=== PATIENT | female | born 1995 | race Caucasian/White ===

== ENCOUNTER 2017-12-21 09:24 | Outpatient (CLI) | payer OTHER | END 2017-12-21 10:13 | disposition home or self-care (01) | LOC: LC 09:24 | PROVIDERS: ATTEND Student in an Organized Health Care Education/Training Program | PROC: 4A1HXCZ Monitoring of Products of Conception, Cardiac Rate, External Approach (ICD-10-PCS; principal; 2017-12-21) | DX: Z34.93 Encounter for supervision of normal pregnancy, unspecified, third trimester (principal) | CPT/HCPCS: 59025 ==

== ENCOUNTER 2017-12-23 18:57 | Inpatient (IN) | payer OTHER ==
[2017-12-23] MEDS ORDERED: RINGERS SOLUTION,LACTATED 300 ML IV ONE (19:56)
[2017-12-23] MEDS ORDERED: DINOPROSTONE 10 MG VAGINAL INSERT.SR PV PRN (19:56)
[2017-12-23 20:27] LABS: APPEARANCE,URINE SLIGHTLY-CLOUDY; BILIRUBIN,URINE NEGATIVE (NEGATIVE); COLOR,URINE STRAW; GLUCOSE, URINE NEGATIVE (NEGATIVE); KETONES,URINE NEGATIVE (NEGATIVE); LEUKOCYTE ESTERASE,URINE LARGE (NEGATIVE); NITRITE,URINE NEGATIVE (NEGATIVE); PROTEIN,URINE NEGATIVE (NEGATIVE); URINE SPECIFIC GRAVITY 1.004; UROBILINOGEN,URINE NEGATIVE mg/dL (<2.0)
[2017-12-23 20:35] LABS: ABSOLUTE LYMPHOCYTES (AUTO) 1.1 10^3/uL (0.5-4.7); ABSOLUTE MONOCYTES (AUTO) 0.3 10^3/uL (0.1-1.4); ABSOLUTE NEUT (AUTO) 4.8 10^3/uL (1.7-8.2); BASOPHILS % (AUTO) 0.4 % (0-2); EOSINOPHILS % (AUTO) 0.3 % (0-6); HEMATOCRIT 39.5 % (36.0-47.0); HEMOGLOBIN 13.1 g/dL (12.0-15.5); LYMPHOCYTES % (AUTO) 17.4 % (13-45); MEAN CORPUSCULAR HEMOGLOBIN 28.3 pg (27.0-33.4); MEAN CORPUSCULAR HGB CONC 33.2 g/dL (32.0-36.0); MEAN CORPUSCULAR VOLUME 85 fl (80-97); MONOCYTES % (AUTO) 5.3 % (3-13); PLATELET COUNT 225 10^3/uL (150-450); RED BLOOD COUNT 4.64 10^6/uL (3.72-5.28); RED CELL DISTRIBUTION WIDTH 13.9 % (11.5-14.0); SEGMENTED NEUTROPHILS % (AUTO) 76.6 % (42-78); TOTAL CELLS COUNTED % (AUTO) 100 %; WHITE BLOOD COUNT 6.2 10^3/uL (4.0-10.5)
[2017-12-23] MEDS ORDERED: DINOPROSTONE 10 MG VAGINAL INSERT.SR ONE (20:37)
[2017-12-23 20:45] LABS: URINE AMPHETAMINES SCREEN NEGATIVE; URINE BARBITURATES SCREEN NEGATIVE; URINE BENZODIAZEPINES SCREEN NEGATIVE; URINE COCAINE SCREEN NEGATIVE; URINE MARIJUANA (THC) SCREEN NEGATIVE; URINE METHADONE SCREEN NEGATIVE; URINE PHENCYCLIDINE SCREEN NEGATIVE
[2017-12-24] MEDS ORDERED: NALBUPHINE HCL INJ 10 MG/1 ML AMPULE INJ ONE ×2 (00:56→06:21)
[2017-12-24] MEDS ORDERED: NALBUPHINE HCL INJ 10 MG/1 ML AMPULE ONE ×2 (00:58→06:24)
[2017-12-24] MEDS: RINGERS SOLUTION,LACTATED 1,000 ML IV PRN ×4 (02:11→17:10)
--- NOTE | 2017-12-24 08:07 | Admission Physical ---
Datetime Report Generated by CPN: 12/24/2017 08:07 CURRENT ADMISSION Hx Assessment: The History has been Reviewed and is Current Chief Complaint: Scheduled Induction of Labor Indication for Induction: Post Dates Indication for Induction: Term, Intrauterine ; No Active Labor; Intact Membranes; Induction of Labor Admit Plan: Admit to Unit; Initiate Labor Induction Protocol ALLERGIES Medication Allergies: No Medication Allergies: No Known Allergies (12/23/2017) Latex: No Latex Allergies Food Allergies: none Environmental Allergies: multiple environmental allergies, no severe reactions OBSTETRICAL HISTORY EDC: 12/16/2017 00:00 : 1 Para: 0 Term: 0 : 0 SAB: 0 IAB: 0 Ectopic: 0 Livin Cesareans: 0 VBACs: 0 Multiple Births: 0 Gestational Diabetes: No Rh Sensitization: No Incompetent Cervix: No TEDDY: No Infertility: No ART Treatment: No Uterine Anomaly: No IUGR: No Hx Previous C/S: No Macrosomia: No Hx Loss/Stillborn: No PIH: No Hx : No Placenta Previa/Abruption: No Depression/PP Depression: No PTL/PROM: No Post Hemorrhage: No Current Procedures: Ultrasound; NST Obstetrical History Comments: G1-present EDC 12/16/17 SEE RECORDS Alcohol: No Marijuana : No Cocaine: No Other Illicit Drugs: No Cigarettes: Never Smoker. [id number] MEDICAL HISTORY Diabetes: No Blood Transfusion: No Pulmonary Disease (Asthma, TB): No Breast Disease: No Hypertension: No Warp Hand Surgery: No Heart Disease: No Hosp/Surgery: No Autoimmune Disorder: No Anesthetic Complications: No Kidney Disease: No Abnormal Pap Smear: No Neuro/Epilepsy: No Psychiatric Disorders: No Other Medical Diseases: No Hepatitis/Liver Disease: No Significant Family History: No Varicosities/Phlebitis: No Trauma/Violence : No Thyroid Dysfunction: No INFECTIOUS HISTORY Gonorrhea: No Genital Herpes: No Chlamydia: No Tuberculosis: No Syphilis: No Hepatitis: No HIV/AIDS Exposure: No Rash or Viral Illness: No HPV: No PHYSICAL EXAM General: Normal HEENT: Normal Neurologic: Normal Thyroid: Deferred Heart: Normal Lungs: Normal Breast: Normal Back: Normal Abdomen: Normal Genitourinary Exam: Normal Extremities: Normal DTRs: Normal Pelvic Type: Adequate Vital Signs: Reviewed VAGINAL EXAM Dilatation: 2 Effacement: 50 Station: -2 Contraction Comments: 2 MEMBRANES Membranes: Intact FETUS A EGA: 41.1 Monitoring: External US FHR- Baseline: 150 Variability: Moderate 6-25bpm Accelerations: 15X15 Decelerations: None FHR Category: Category I Estimated Weight (gm): 4000 Presentation: Vertex Admit Comment: Post dates IOL 41+1, efw 8 lbs 14oz on12/16/17. uncomplicated, was transfer from [place] GBS negative Cervidil overnight, pitocin in am See hx for complete medical, surgical hx PLANS FOR LABOR AND DELIVERY Labor and Delivery: None Pain Management: Medications; Epidural Feeding Preference: Breast Benefit of Breast Feed Discussed: Yes Circumcision: N/A INFORMED CONSENT Assignment: Jesica Ramirez MD Signature: with User ID: [email or web address] : with User ID: [email or web address]
[2017-12-24] MEDS ORDERED: EPHEDRINE SULFATE INJ 50 MG/1 ML AMPULE ONE (10:14)
[2017-12-24] MEDS ORDERED: BUPIVACAINE HCL 0.25 % INJ/PF (2.5 MG/1 ML) 30 ML VIAL ONE (10:15)
[2017-12-24] MEDS ORDERED: FENTANYL/BUPIVACAINE/NS/PF 200 MCG/100 ML RTUINJ EPI ONE (10:15)
--- NOTE | 2017-12-24 12:01 | L&D Progress Notes ---
PROGRESS NOTES Datetime Report Generated by CPN: 12/24/2017 12:00 PROGRESS NOTE Impression: Normal Progression of Labor; Reassuring Heart Rate Procedures: Artificial ROM Plan: Continue Present Management Informed Consent Obtained: Vaginal Delivery Vital Signs : Reviewed Comment: Comfortable with epidural AROM, clear Continue present mgmt Start pit prn VAGINAL EXAM Dilatation: 5 Dilatation: 2 Effacement: 100 Effacement: 50 Station: 0 Station: -2 Contractions: 2-3 Contractions: 2 MEMBRANES Membranes: Ruptured Membranes: Intact Amniotic Fluid Color: Meconium, Heavy FETUS A FHR - Baseline: 145 Monitoring: External US Variability: Moderate 6-25bpm Accelerations: 15X15 Decelerations: None FHR Category: Category I Estimated Weight (gm): 4000 Presentation: Vertex SIGNATURE SIGNATURE: [id number] SIGNATURE: [id number] Assignment: Jesica Ramirez MD Signature: with User ID: [email or web address] : with User ID: [email or web address]
[2017-12-24] MEDS ORDERED: MISOPROSTOL 0.2 MG TABLET ONE (12:40)
[2017-12-24] MEDS ORDERED: LIDOCAINE 1% INJ-PF (10 MG/ML) 30 ML SDV ONE (12:40)
[2017-12-24] MEDS ORDERED: OXYTOCIN/NORMAL SALINE 20 UNIT/1,000 ML RTUINJ ONE (12:41)
[2017-12-24] MEDS: OXYTOCIN/NORMAL SALINE 20 UNIT/1,000 ML RTUINJ IV PRN ×2 (13:15→17:10)
[2017-12-24] MEDS ORDERED: ACETAMINOPHEN WITH CODEINE #3 TABLET PO PRN ×2 (16:19)
[2017-12-24] MEDS ORDERED: BENZOCAINE/MENTHOL AEROSOL SPRAY 56 ML TOP PRN (16:19)
[2017-12-24] MEDS ORDERED: DIPH/PERTUSS(ACELL)/TETANUS VAC/PF 0.5 ML SYR (>=10YO) IM PRN (16:19)
[2017-12-24] MEDS ORDERED: ZOLPIDEM TARTRATE 5 MG TABLET PO PRN (16:19)
[2017-12-24] MEDS ORDERED: DIBUCAINE 1% OINTMENT 28 GM TP PRN (16:19)
[2017-12-24] MEDS ORDERED: OXYTOCIN/NORMAL SALINE 20 UNIT/1,000 ML RTUINJ IV PRN (16:19)
[2017-12-24] MEDS ORDERED: MEASLES,MUMPS&RUBELLA VACC/PF 0.5 ML VIAL SUBCUT PRN (16:19)
--- NOTE | 2017-12-24 16:23 | Warning Signs in Babies ---
VOD Warning Signs Datetime Report Generated by [facility]: 12/24/2017 16:23 VOD#[id number] -Warning Signs in Babies: Viewed with Parent(s)/Family (12/21/2017 09:44:CHADWICK Marcos)
--- NOTE | 2017-12-24 16:49 | Warning Signs in Babies ---
VOD Warning Signs Datetime Report Generated by [facility]: 12/24/2017 16:49 VOD#[id number] -Warning Signs in Babies: Viewed with Parent(s)/Family (12/24/2017 16:00:CHADWICK Marcos)
[2017-12-24] MEDS ORDERED: IBUPROFEN 800 MG TABLET ONE (17:34)
[2017-12-24] MEDS ORDERED: DOCUSATE SODIUM 100 MG CAPSULE ONE (17:38)
[2017-12-24] MEDS ORDERED: FERROUS SULFATE 325 MG TABLET PO ONE (17:39)
[2017-12-24] MEDS: FERROUS SULFATE 325 MG TABLET PO SCH (17:40)
[2017-12-24] MEDS: DOCUSATE SODIUM 100 MG CAPSULE PO SCH (17:41)
--- NOTE | 2017-12-24 17:45 | Delivery Summary ---
Del Sum A-C Datetime Report Generated by CPN: 12/24/2017 17:45 DELIVERY PERSONNEL DELIVERY PERSONNEL: [id number] Delivery Doctor:: Jaqueline Davila CNM Nurse Assignment Manager Certified:: Jaqueline Davila CNM Labor and Delivery Nurse:: CHADWICK Marcos Nursery Nurse:: JAVED [place] Tech/EDUCATIONAL THERAPIST: Nury Elder ST MATERNAL INFORMATION Delivery Anesthesia: Epidural Medications After Delivery: Pitocin Bolus-Please Comment Meds After Delivery Comment: Pitocin 20 units in 1000 ml nss open for bolus Estimated Blood Loss (ml): 200 Maternal Complications: None Provider Comments: Pt complete/+2, pushed well with ctx, of viable female infant, head, shoulders, and body delivered without difficulty, with spontaneous cry and respirations, to maternal abdomen, cord clampec X2, after 2 min dealy, cut free by pts , kept skin to skin. Spontaneous delivery of placenta, mec stained, via zuniga mechanism, appears intact, 3 VC, vagina and perineum insepcted, 2nd degree perineal lacerations repaired as above. Hemostasis acheived with external funal massage and IV pitocin, mother and baby in stable condition, routine pp care. LABOR SUMMARY EDC: 12/16/2017 00:00 No. Babies in Womb: 1 Attempted: No Labor Anesthesia: Epidural LABOR INFORMATION Reason for Induction: Not Applicable Onset of Labor: 12/24/2017 11:50 Complete Dilatation: 12/24/2017 15:25 Cervical Ripening Agents: Cervidil Oxytocin: Augmentation Group B Beta Strep: Negative Antibiotics # of Doses: 0 MEMBRANES Membranes Rupture Method: Artificial Rupture of Membranes: 12/24/2017 11:50 Length of Rupture (hr): 4.08 Amniotic Fluid Color: Moderate Meconium Amniotic Fluid Amount: Moderate Amniotic Fluid Odor: Normal STAGES OF LABOR Stage 1 hr: 3 Stage 1 min: 35 Stage 2 hr: 0 Stage 2 min: 30 Stage 3 hr: 0 Stage 3 min: 3 Total Time in Labor hr: 4 Total Time in Labor min: 8 VAGINAL DELIVERY Episiotomy: None Laceration #1: Perineal Laceration Extension #1: Second Degree Laceration #2: None Laceration #3: None Laceration Repair: Yes Laceration Repair Note: Repaired with 2-0 chromic in usual fashion, using epidural anesthesia. Sponge Count Correct: Yes Sharps Count Correct: Yes CSECTION DELIVERY Primary Indication: N/A Secondary Indication: N/A CSection Incidence: N/A Labor: N/A Elective: N/A CSection Incision: N/A BABY A INFORMATION Infant Delivery Date/Time: 12/24/2017 15:55 Method of Delivery: Vaginal Born in Route : No : N/A Forceps: N/A Vacuum Extraction: N/A Shoulder Dystocia : No PRESENTATION/POSITION BABY A Presentation: Cephalic Cephalic Presentation: Vertex Vertex Position: Right Occipital Anterior Breech Presentation: N/A PLACENTA INFORMATION BABY A Placenta Delivery Time : 12/24/2017 15:58 Placenta Method of Delivery: Spontaneous Placenta Status: Delivered SCORES BABY A Heart Rate 1 min: >100 bpm Resp Effort 1 min: Good Cry Reflex Irritability 1 min: Cough or Sneeze or Pulls Away Muscle Tone 1 min: Active Motion Color 1 min: Blue/Pale Resuscitation Effort 1 min: Tactile Stimulation SCORE 1 MIN: 8 Heart Rate 5 min: >100 bpm Resp Effort 5 min: Good Cry Reflex Irritability 5 min: Cough or Sneeze or Pulls Away Muscle Tone 5 min: Active Motion Color 5 min: Body [place], Extremities Blue Resuscitation Effort 5 min: N/A SCORE 5 MIN: 9 Resuscitation Effort 10 min: N/A INFORMATION BABY A Gestational Age at Delivery: 41.1 Gestational Status: Late Term- 41- 41.6 Weeks Outcome : Liveborn Infant Condition : Stable Infant Sex: Female IDENTIFICATION BABY A Verification Date/Time: 12/24/2017 16:20 ID Band Number: [id number] Mother's Name Verified: Yes RN Verifying : D Bellavance RNC/C Cotterman RN WEIGHT/LENGTH BABY A Birthweight (gm): 3490 Weight (lb): 7 Infant Weight (oz): 11 Length (in): 22.00 Length (cm): 55.88 CORD INFORMATION BABY A No. Cord Vessels: 3 Nuchal Cord : N/A Cord Blood Taken: Yes-For Eval (Mom's Blood Type - or O+) Infant Suction: None ASSESSMENT BABY A Infant Complications: Meconium Physical Findings at Delivery: Within Normal Limits Infant Respirations: Appears Normal Skin to Skin: Yes Skin to Skin Time (min): 60 Fire[employer] Cutter/ALS Called : No Care By: Marcial Ochoa RN Transferred To: Remains with Mother BABY B INFORMATION : N/A SIGNATURES Assignment: Jesica Ramirez MD Signature: with User ID: [email or web address] : with User ID: [email or web address]
[2017-12-24] MEDS: IBUPROFEN 800 MG TABLET PO SCH (23:03)
[2017-12-25] MEDS: IBUPROFEN 800 MG TABLET PO SCH ×3 (05:31→21:08)
[2017-12-25 07:35] LABS: HEMATOCRIT 34.9 % (36.0-47.0); HEMOGLOBIN 11.6 g/dL (12.0-15.5); MEAN CORPUSCULAR HEMOGLOBIN 28.4 pg (27.0-33.4); MEAN CORPUSCULAR HGB CONC 33.3 g/dL (32.0-36.0); MEAN CORPUSCULAR VOLUME 85 fl (80-97); PLATELET COUNT 189 10^3/uL (150-450); RED BLOOD COUNT 4.09 10^6/uL (3.72-5.28); WHITE BLOOD COUNT 11.1 10^3/uL (4.0-10.5)
[2017-12-25] MEDS: PRENATAL VITAMIN W DHA CAPSULE PO SCH (10:16)
[2017-12-25] MEDS: DOCUSATE SODIUM 100 MG CAPSULE PO SCH ×2 (10:17→18:11)
[2017-12-25] MEDS: SENNOSIDES/DOCUSATE 8.6-50 MG 1 EACH TABLET PO SCH (10:17)
[2017-12-25] MEDS: FERROUS SULFATE 325 MG TABLET PO SCH ×2 (10:18→18:11)
--- NOTE | 2017-12-25 10:48 | PDOC PROGRESS REPORT ---
Subjective-OB Progress Note for:: 12/25/17 Subjective: states she is tolerating diet, bleeding slowing, pain controlled with current meds. denies needs. reports without difficulty Physical Exam (OB) Vital Signs: Temp Pulse Resp BP Pulse Ox 97.7 F 72 14 98/54 L 97 12/25/17 07:50 12/25/17 07:50 12/25/17 07:50 12/25/17 07:50 12/25/17 07:50 Intake & Output 12/24/17 12/25/17 12/26/17 06:59 06:59 06:59 Intake Total 380 Balance 380 Weight 91.9 kg - Abdomen Description: Soft Hernia Present: No Fundal Description: Firm, Midline Fundal Height: u/u - u/2 - Abdominal Tenderness: Nontender - Extremities Lower extremities: Mague's sign - neg Calf: Normal, Nontender Objective-Diagnostic Laboratory: 12/25/17 07:05 12/25/17 07:05 WBC 11.1 H RBC 4.09 Hgb 11.6 L Hct 34.9 L MCV 85 MCH 28.4 MCHC 33.3 RDW 14.0 Plt Count 189 Assessment and Plan(PN) - Assessment and Plan (1) Normal vaginal delivery Is this a current diagnosis for this admission?: Yes - Time Spent with Patient Time with patient: Less than 15 minutes - Disposition Anticipated Discharge: Home Within: within 24 hours
[2017-12-25] MEDS ORDERED: ACETAMINOPHEN 325 MG TABLET PO PRN (10:49)
[2017-12-25] MEDS ORDERED: ACETAMINOPHEN 325 MG TABLET ONE (11:14)
[2017-12-26] MEDS: IBUPROFEN 800 MG TABLET PO SCH ×2 (05:17→13:07)
[2017-12-26 08:24] VITALS: BP 109/72
--- NOTE | 2017-12-26 09:47 | PDOC DISCHARGE SUMMARY ---
Final Diagnosis Discharge Date: 12/26/17 - Final Diagnosis (1) Normal vaginal delivery Is this a current diagnosis for this admission?: Yes Discharge Data - Discharge Medication Prescriptions: Ibuprofen [Motrin 800 mg Tablet] 800 mg PO Q8 #90 tablet Home Medications: Vit Calc,Iron,Folic [ Vitamins] 1 tab PO DAILY 12/21/17 Acetaminophen [Tylenol 325 mg Tablet] 975 mg PO Q4HP PRN tablet 12/26/17 Benzocaine/Menthol [Dermoplast Aerosol [place] 56 ml] 1 applic TOP PRN PRN can Ibuprofen [Motrin 800 mg Tablet] 800 mg PO Q8 #90 tablet 12/26/17 Gestational Age: 41+1 Reason(s) for Admission: Induction of Labor Procedures: NST Intrapartum Procedure(s): Spontaneous Vaginal Delivery Complication(s): Laceration-Perineal Laceration-Degree: 2nd - Data Baby 1 Female at 1 minute: 8 at 5 minutes: 9 - Diagnosis Test Laboratory: Temp Pulse Resp BP Pulse Ox 97.9 F 71 15 109/72 99 12/26/17 07:23 12/26/17 07:23 12/26/17 07:23 12/26/17 07:23 12/26/17 07:23 12/23/17 12/23/17 12/25/17 19:32 20:24 07:05 RBC 4.64 4.09 Hgb 13.1 11.6 L Hct 39.5 34.9 L Urine Opiates Screen NEGATIVE - Discharge information/Instructions Discharge Activity: Balance Activity w/Rest, Pelvic Rest Discharge Diet: Regular Disposition: HOME, SELF-CARE Follow up with: [facility] in: 4, Weeks
[2017-12-26] MEDS: SENNOSIDES/DOCUSATE 8.6-50 MG 1 EACH TABLET PO SCH (10:25)
[2017-12-26] MEDS: FERROUS SULFATE 325 MG TABLET PO SCH (10:25)
[2017-12-26] MEDS: PRENATAL VITAMIN W DHA CAPSULE PO SCH (10:25)
[2017-12-26] MEDS: DOCUSATE SODIUM 100 MG CAPSULE PO SCH (10:25)
== END 2017-12-26 14:03 | disposition home or self-care (01) | DRG 775 ==
LOC: LR 18:57 → 2S 12-24 18:07
PROVIDERS: ADMIT Obstetrics & Gynecology Gynecology; ATTEND Obstetrics & Gynecology Gynecology
PROC: 4A1HXCZ Monitoring of Products of Conception, Cardiac Rate, External Approach (ICD-10-PCS; 2017-12-23)
PROC: 10E0XZZ Delivery of Products of Conception, External Approach (ICD-10-PCS; principal; 2017-12-24)
PROC: 0KQM0ZZ Repair Perineum Muscle, Open Approach (ICD-10-PCS; 2017-12-24)
DX: O48.0 Post-term pregnancy (principal); O70.1 Second degree perineal laceration during delivery; O77.0 Labor and delivery complicated by meconium in amniotic fluid; Z37.0 Single live birth; Z3A.41 41 weeks gestation of pregnancy
CPT/HCPCS: 36415; 80307; 81005; 85025; 85027; 86592; 86850; 86900; 86901; J2300; J2590; J3490